=== PATIENT | male | born 1980 | race Caucasian/White ===

== ENCOUNTER → 2016-03-28 | Outpatient (REF) | payer MEDICAID ==
[~2016-03-28] MED LIST: CIPR5SUS PO; METR500T10 PO; REFR0.5D8 OU
== END ==
LOC: M SMT 17:00
PROVIDERS: ATTEND Nurse Practitioner Family
DX: R39.9 Unspecified symptoms and signs involving the genitourinary system (principal)

== ENCOUNTER → 2016-04-17 | Outpatient (CLI) | payer MEDICAID ==
[~2016-04-17] VITALS: Ht 165.1 cm; Wt 68.0 kg
[~2016-04-17] MED LIST changes: +HYDR-3713 PO; +LIDOCAINE 2% INJ 100 MG/5 ML SDV (FOR ANES.) As Ordered ONE; +NEXI20CA PO; +NS 1,000 ML IV SCH; +PROPOFOL 200 MG/20 ML VIAL As Ordered ONE
--- NOTE | 2016-04-17 11:50 | ROOR ---
Patient Name: Boom Reyna Procedure Date: 04/17/2016 11:37 AM Date of : 1980 Age: 35 Room: [facility] Gender: Male Note Status: Finalized Procedure: Upper GI endoscopy Indications: Suspected esophageal reflux Providers: Francois Nguyen Jr, MD Referring MD: MOHSEN NIELSON MD Requesting Provider: Medicines: Propofol per Anesthesia Complications: No immediate complications. Procedure: Pre-Anesthesia Assessment: - Prior to the procedure, a History and Physical was performed, and patient medications and allergies were reviewed. The patient is competent. The risks and benefits of the procedure and the sedation options and risks were discussed with the patient. All questions were answered and informed consent was obtained. Patient identification and proposed procedure were verified by the physician and the nurse in the pre-procedure area and in the procedure room. Mental Status Examination: alert and oriented. Airway Examination: normal oropharyngeal airway and neck mobility. Respiratory Examination: clear to auscultation. CV Examination: normal. ASA Grade Assessment: II - A patient with mild systemic disease. After reviewing the risks and benefits, the patient was deemed in satisfactory condition to undergo the procedure. The anesthesia plan was to use moderate sedation / analgesia (conscious sedation). Immediately prior to administration of medications, the patient was re-assessed for adequacy to receive sedatives. The heart rate, respiratory rate, oxygen saturations, blood pressure, adequacy of pulmonary ventilation, and response to care were monitored throughout the procedure. The physical status of the patient was re-assessed after the procedure. The Endoscope was introduced through the mouth, and advanced to the second part of duodenum. The upper GI endoscopy was accomplished without difficulty. The patient tolerated the procedure well. Findings: The upper third of the esophagus, middle third of the esophagus and lower third of the esophagus were normal. A small hiatal hernia was present. Patchy mild inflammation was found in the gastric body, in the gastric antrum and in the prepyloric region of the stomach. The duodenal bulb, first portion of the duodenum and second portion of the duodenum were normal. Impression: - Normal upper third of esophagus, middle third of esophagus and lower third of esophagus. - Small hiatal hernia. - Gastritis. - Normal duodenal bulb, first portion of the duodenum and second portion of the duodenum. - No specimens collected. Recommendation: - Discharge patient to home (ambulatory). - Return to my office in 2 weeks. Francois Nguyen MD Francois Nguyen Jr, MD 04/17/2016 11:49:29 AM This report has been signed electronically. Number of Addenda: 0 Note Initiated On: 04/17/2016 11:37 AM Estimated Blood Loss: Estimated blood loss: none.
--- NOTE | 2016-04-17 12:03 | ROOR ---
Patient Name: Boom Reyna Procedure Date: 04/17/2016 11:39 AM Date of : 1980 Age: 35 Room: [facility] Gender: Male Note Status: Finalized Procedure: Colonoscopy Indications: Abdominal pain in the left lower quadrant, Suspected diverticulitis Providers: Francois Nguyen Jr, MD Referring MD: MOHSEN NIELSON MD Requesting Provider: Medicines: Propofol per Anesthesia Complications: No immediate complications. Procedure: Pre-Anesthesia Assessment: - Prior to the procedure, a History and Physical was performed, and patient medications and allergies were reviewed. The patient is competent. The risks and benefits of the procedure and the sedation options and risks were discussed with the patient. All questions were answered and informed consent was obtained. Patient identification and proposed procedure were verified by the physician and the nurse in the pre-procedure area and in the procedure room. Mental Status Examination: alert and oriented. Airway Examination: normal oropharyngeal airway and neck mobility. Respiratory Examination: clear to auscultation. CV Examination: normal. ASA Grade Assessment: II - A patient with mild systemic disease. After reviewing the risks and benefits, the patient was deemed in satisfactory condition to undergo the procedure. The anesthesia plan was to use moderate sedation / analgesia (conscious sedation). Immediately prior to administration of medications, the patient was re-assessed for adequacy to receive sedatives. The heart rate, respiratory rate, oxygen saturations, blood pressure, adequacy of pulmonary ventilation, and response to care were monitored throughout the procedure. The physical status of the patient was re-assessed after the procedure. The Colonoscope was introduced through the anus and advanced to the cecum, identified by appendiceal orifice and ileocecal valve. The quality of the bowel preparation was adequate and good. The colonoscopy was performed without difficulty. The patient tolerated the procedure well. Findings: The perianal and digital rectal examinations were normal. Pertinent negatives include normal sphincter tone, no palpable rectal lesions and no anal lesion or abnormality was detected. The rectum, recto-sigmoid colon, cecum, appendiceal orifice and ileocecal valve appeared normal. A few small-mouthed diverticula were found in the sigmoid colon. A few small-mouthed diverticula were found in the descending colon, transverse colon and ascending colon. A small polyp was found in the rectum. The polyp was removed with a jumbo cold forceps. Resection and retrieval were complete. Impression: - The rectum, recto-sigmoid colon, cecum, appendiceal orifice and ileocecal valve are normal. - Diverticulosis in the sigmoid colon. - Diverticulosis in the descending colon, in the transverse colon and in the ascending colon. - One small polyp in the rectum, removed with a jumbo cold forceps. Resected and retrieved. Recommendation: - Return to my office in 2 weeks. Francois Nguyen MD Francois Nguyen Jr, MD 04/17/2016 12:03:36 PM This report has been signed electronically. Number of Addenda: 0 Note Initiated On: 04/17/2016 11:39 AM Estimated Blood Loss: Estimated blood loss: none.
[2016-04-17 12:33] VITALS: BP 109/67
== END ==
LOC: M OPP 10:28
PROVIDERS: ATTEND Surgery
DX: R10.32 Left lower quadrant pain (principal); D12.8 Benign neoplasm of rectum; K57.30 Diverticulosis of large intestine without perforation or abscess without bleeding; R12 Heartburn; K29.70 Gastritis, unspecified, without bleeding; K44.9 Diaphragmatic hernia without obstruction or gangrene; K58.9 Irritable bowel syndrome, unspecified; F32.9 Major depressive disorder, single episode, unspecified; F41.9 Anxiety disorder, unspecified; F17.200 Nicotine dependence, unspecified, uncomplicated; Z79.899 Other long term (current) drug therapy

== ENCOUNTER → 2023-04-15 | Outpatient (CLI) | payer OTHER ==
[~2023-04-15] MED LIST changes: +GASTROGRAFIN SOLUTION 30ML ONE; +ISOVUE-370 76% 100ML VIAL ONE; -LIDOCAINE 2% INJ 100 MG/5 ML SDV (FOR ANES.) As Ordered ONE; +METR-265 PO; -METR500T10 PO; -NS 1,000 ML IV SCH; -PROPOFOL 200 MG/20 ML VIAL As Ordered ONE
== END ==
LOC: M PLAIMG 11:19
PROVIDERS: ATTEND Surgery
DX: K43.2 Incisional hernia without obstruction or gangrene (principal)
CPT/HCPCS: 74177; Q9963; Q9967